=== PATIENT | male | born 1950 ===

== ENCOUNTER 2016-11-26 06:29 | Day surgery (SDC) | payer MEDICARE ==
[2016-11-20 11:06] VITALS: BMI 25.7
[2016-11-26] MEDS ORDERED: ceFAZolin IV 1 gm in Dextrose 1 GM/50 ML BAG IVPB ONE (08:43)
[2016-11-26] MEDS ORDERED: Bupivacaine 0.5% Inj(30mL) ONE (08:44)
[2016-11-26] MEDS ORDERED: Lactated Ringer's 1,000 ML IV ONE (09:27)
[2016-11-26] MEDS ORDERED: Bacitracin 500 Units/gm Oint Foilpak UD ONE (10:06)
[2016-11-26] MEDS ORDERED: HYDROmorphone 0.5 mg/0.5 ml ISec IVP PRN (10:32)
--- NOTE | 2016-11-26 11:07 | OP ---
PROCEDURE DATE: 11/26/2016 PREOPERATIVE DIAGNOSIS: Elective sterilization. POSTOPERATIVE DIAGNOSIS: Elective sterilization. PROCEDURE: Bilateral vasectomy. SURGEON: Dr. Hill. ANESTHESIA: Local anesthesia plus IV sedation with Dr. Anna Burton. DESCRIPTION OF PROCEDURE: The patient was placed on the operative table in the supine position, prep ped and draped in usual sterile fashion with chloroform. Under adequate IV sedation, approximately a total of 3 mL of 0.5% Marcaine plus 2% Carbocaine was injected subcutaneously overlying each palpabl e vas in each scrotal sac. Incisions were made in each scrotal sac overlying the palpated vas, down to the vas structure. The vas structure was then grasped with Allis clamp, brought out through the s kin incision and dissected down to the vas which was then mobilized for at least a length of 2 cm. A 1 cm segment of each vas was sharply excised. Each lumen of the vas was fulgurated with the coagula ting current at 30 flores throughout the entire procedure. Each end of the vas was doubly ligated wit h 3-0 chromic suture with each end of the vas oversewn on itself. Hemostasis was achieved using the coagulating current set at 30 folres throughout the entire procedure. Each end of the vas was then pl aced in separate layers and oversewn with 3-0 chromic interrupted suture, followed by closure of the subcutaneous tissue with a 3-0 chromic suture and closure of the skin with two 3-0 chromic sutures fo r each wound bilaterally. The patient tolerated the procedure very well with 5 mL of blood loss and was brought to recovery area in satisfactory condition. The patient was advised prior to the procedu re not to have any unprotected sex until notified. The patient will be discharged home on Tylenol No. 3, one tab q. 4 hours p.r.n. for pain. The patien t will be seen in office followup in 1 month. Ignacio Hill MD cc: [id number] TT: 11/26/2016 11:06:31 roxanne
[2016-11-26 11:26] VITALS: RESP 12; TEMP 97.2
[2016-11-26 12:40] VITALS: O2SAT 98
[2016-11-26 12:42] VITALS: BP 123/76; PULSE 63
--- NOTE | 2016-11-26 14:00 | CARD ---
APPROVED REPORT EKG Measurement Heart [id number] <Conclusion> Sinus bradycardia Possible Left atrial enlargement Borderline ECG
== END 2016-11-26 12:15 | disposition home or self-care (01) ==
LOC: C.OPSURG 06:29
PROVIDERS: ATTEND Urology
DX: Z30.2 Encounter for sterilization (principal)
CPT/HCPCS: 55250; 88302; 93005; J0690; J7120